=== PATIENT | male | born 1995 | race Two or more races ===

== ENCOUNTER 2017-08-10 10:26 | Emergency (ER) | payer BC ==
[~2017-08-10] VITALS: Ht 154.9 cm; Wt 78.7 kg
[~2017-08-10 10:26] MED LIST: MOTRIN600 MG PO; ULTRAM50 MG PO
[2017-08-10 11:07] LABS: HEMATOCRIT 44.2 % (38.0-50.0); HEMOGLOBIN 15.3 G/DL (12.5-16.6); MCH 30.4 PG (29.0-34.0); MCHC 34.6 G/DL (30.0-36.0); MCV 87.9 FL (86-99); RBC DIS.WIDTH-CV 11.6 % (11.8-14.6); RBC DIS.WIDTH-SD 37.3 % (39-53); RED BLOOD COUNT 5.03 M/uL (4.00-5.50); WHITE BLOOD COUNT 4.9 K/uL (4.1-10.2)
[2017-08-10 11:16] LABS: CHLORIDE 103 mEq/L (99-109); SODIUM 139 mEq/L (136-147)
[2017-08-10 11:18] LABS: GLUCOSE 89 mg/dL (70-99)
[2017-08-10 11:22] LABS: GFR ESTIMATE (CALCULATED) > 59 mL/min/ (58.99-99999); UREA NITROGEN (BUN) 11 mg/dL (9-23)
[2017-08-10 11:29] LABS: TROP-I INTERPRETATION NEGATIVE; TROPONIN-I < 0.01 ng/mL (0.0-0.30)
[2017-08-10 11:37] LABS: D-DIMER ELISA < 150.00 ng/mLDDU (<230)
[2017-08-10 12:02] LABS: PLATELET COUNT 222 K/uL (156-360)
[2017-08-10 12:28] VITALS: BP 119/75
== END 2017-08-10 12:29 | disposition home or self-care (01) ==
LOC: EME 10:26
DX: R07.89 Other chest pain (principal); R00.2 Palpitations; R06.00 Dyspnea, unspecified; R06.2 Wheezing
CPT/HCPCS: 71046; 80048; 84484; 85027; 85379; 93005; 99281; 99284